=== PATIENT | male | born 1950 | race Caucasian/White ===

== ENCOUNTER → 2017-03-30 | Outpatient (CLI) | payer MEDICARE, BC ==
[~2017-03-30] MED LIST: AMBIEN10 MG PO; ASPIRIN LO-DOSE81 MG PO; CYMBALTA60 MG PO; DESYREL100 MG PO; FISH OIL 1,2001 EAC1 PO; FLOMAX0.4 MG PO; GLUCOPHAGE1000 MG PO; GLUCOTROL XL10 MG PO; HUMALOG100 UNIT/1 SUB-Q; LEVEMIR FL100 UNIT/1 SUB-Q; PERCOCET 5-3251 EACH PO; PRINIVIL (ZESTR20 MG PO; TRAVATAN Z OPH2.5 ML OPHTH; ZOCOR80 MG PO
== END ==
LOC: GNJRC 03-23 11:00
DX: Z01.818 Encounter for other preprocedural examination (principal); M17.12 Unilateral primary osteoarthritis, left knee; Z79.899 Other long term (current) drug therapy